=== PATIENT | female | born 1970 | race Caucasian/White ===

== ENCOUNTER 2017-12-07 16:51 | Emergency (ER) | payer MEDICAID ==
[2017-12-07 17:18] VITALS: BP 127/77; PULSE 83; RESP 16; TEMP 98.3; O2SAT 99
[2017-12-07] MEDS ORDERED: Albuterol 0.083% Inhal Sol (2.5 mg/3 mL) UD IH STA (18:30)
--- NOTE | 2017-12-07 18:31 | C.PDOC ---
History Of Present Illness 47 year old female presents to the ER with a complaint of fever and body aches for the past 4 days. Patient reports she has been taking Contac for the fever with improvement, however, patient began having cough 2 days ago for which she has been taking tylenol. Denies sick contact, recent travel, chest pain, sob, rash, neck pain, abdominal pain, nausea, or vomiting. Time Seen by Provider: 12/07/17 18:08 Chief Complaint (Nursing): Flu-like Symptoms History Per: Patient History/Exam Limitations: no limitations Onset/Duration Of Symptoms: Days Current Symptoms Are (Timing): Still Present Location Of Pain: Diffuse Myalgias Associated Symptoms: Fever, Cough, Myalgias Ear Symptoms: Bilateral: None Recent travel outside of the [place]: No Past Medical History Reviewed: Historical Data, Nursing Documentation, Vital Signs Vital Signs: Last Vital Signs Temp 98.3 F 12/07/17 17:14 Pulse 83 12/07/17 17:14 Resp 16 12/07/17 17:14 BP 127/77 12/07/17 17:14 Pulse Ox 99 12/07/17 20:54 Surgical History: Cholecystectomy Family History: States: Unknown Family Hx - Social History Hx Tobacco Use: No Hx Alcohol Use: No (occasional) Hx Substance Use: No - Immunization History Hx Tetanus Toxoid Vaccination: No Hx Influenza Vaccination: No Hx Pneumococcal Vaccination: No Review Of Systems Constitutional: Positive for: Fever Respiratory: Positive for: Cough Gastrointestinal: Negative for: Nausea, Vomiting, Abdominal Pain Musculoskeletal: Positive for: Other (Body aches) Physical Exam - Physical Exam Appears: Non-toxic, No Acute Distress Skin: Normal Color, Warm, Dry Head: Atraumatic, Normacephalic Eye(s): bilateral: Normal Inspection, EOMI Ear(s): Bilateral: Normal Nose: Normal Oral Mucosa: Moist Throat: Normal, No Erythema, No Exudate Neck: Normal, Supple Chest: Symmetrical, No Tenderness Cardiovascular: Rhythm Regular Respiratory: Normal Breath Sounds, No Rales, No Rhonchi, No Wheezing Gastrointestinal/Abdominal: Soft, No Tenderness Extremity: Normal ROM Neurological/Psych: Oriented x3, Normal Speech ED Course And Treatment O2 Sat by Pulse Oximetry: 99 (Room air) Pulse Ox Interpretation: Normal - Radiology CXR: Interpreted by Me, Viewed By Me CXR Interpretation: Yes: No Acute Disease. No: Infiltrates Progress Note: CXR ordered, results were negative. Albuterol nebulizer administered. Patient is resting comfortably in no acute distress with clear breath sounds, she reports improvement of her cough symptoms. Will discharge home with instructions to follow up with PMD or return if symptoms worsen. Disposition - Disposition Disposition: HOME/ ROUTINE Disposition Time: 19:24 Condition: STABLE Additional Instructions: Follow up with your primary medical doctor or clinic in 2-5 days for further evaluation. Take medications as prescribed. Return to the emergency department at any time if symptoms persist or worsen. Prescriptions: Albuterol HFA [Ventolin HFA 90 mcg/actuation (8 g)] 2 puff IH [id number] #1 puff Azithromycin [Zithromax] 250 mg PO DAILY #6 tab Guaifen/Dextromethorphan/PE [Mucinex Fast-Max Congest-Cough] 1 each PO Q6 #20 tablet predniSONE [Prednisone] 40 mg PO DAILY #8 tab Instructions: Acute Bronchitis, Adult (DC) Forms: [employer]™ (Czech) - Clinical Impression Clinical Impression: Bronchitis - PA / [employer] / Resident Statement MD/DO has reviewed & agrees with the documentation as recorded. - Scribe Statement The provider has reviewed the documentation as recorded by the Scribe Kuldeep Swan All medical record entries made by the Scribe were at my direction and personally dictated by me. I have reviewed the chart and agree that the record accurately reflects my personal performance of the history, physical exam, medical decision making, and the department course for this patient. I have also personally directed, reviewed, and agree with the discharge instructions and disposition.
[2017-12-07] MEDS ORDERED: Albuterol 0.083% Inhal Sol (2.5 mg/3 mL) UD ONE (18:37)
--- NOTE | 2017-12-08 10:18 | RAD ---
HISTORY: fever COMPARISON: None available. TECHNIQUE: Chest PA and lateral FINDINGS: Examination limited by habitus. LUNGS: No focal consolidation. Please note that chest x-ray has limited sensitivity for the detection of pulmonary masses. PLEURA: No significant pleural effusion identified. No definite pneumothorax . CARDIOVASCULAR: Heart size appears top normal. OSSEOUS STRUCTURES: Mild degenerative changes of the spine. VISUALIZED UPPER ABDOMEN: Unremarkable. OTHER FINDINGS: None. IMPRESSION: No focal consolidation, significant pleural effusion, or definite pneumothorax identified.
== END 2017-12-07 19:33 | disposition home or self-care (01) ==
LOC: C.ER 16:51
DX: J40 Bronchitis, not specified as acute or chronic (principal)

== ENCOUNTER 2017-12-23 18:43 | Observation (INO) | payer MEDICAID ==
[2017-12-23] MEDS ORDERED: Sodium Chloride 0.9% 1,000 ML IV ONE (20:07)
[2017-12-23] MEDS ORDERED: Belladonna-Phenobarbital PO STA (20:07)
[2017-12-23] MEDS ORDERED: Belladonna-Phenobarbital ONE (20:30)
[2017-12-23] MEDS ORDERED: Sodium Chloride 0.9% 1,000 ML ONE (20:31)
[2017-12-23 20:54] LABS: SQUAMOUS EPITHIAL 1 /hpf (0-5); URINE BACTERIA RARE (<OCC); URINE BILIRUBIN NEGATIVE (NEGATIVE); URINE BLOOD NEGATIVE (NEGATIVE); URINE CLARITY Clear (Clear); URINE COLOR Yellow (YELLOW); URINE GLUCOSE (UA) NORMAL (Normal); URINE HYALINE CAST 0-2 /lpf (0-2); URINE LEUKOCYTE ESTERASE NEG Leu/uL (Negative); URINE PROTEIN NEGATIVE (NEGATIVE); URINE UROBILINOGEN NORMAL mg/dL (0.2-1.0)
[2017-12-23 20:55] LABS: ALB/GLOB RATIO 1.3 (1.0-2.1); ALBUMIN 4.2 g/dL (3.5-5.0); ALT/SGPT 44 U/L (9-52); AST/SGOT 42 U/L (14-36); BLOOD UREA NITROGEN 12 mg/dL (7-17); CALCIUM 8.6 mg/dl (8.6-10.4); GFR AFRICAN-AMERICAN > 60; GFR NON-AFRICAN AMERICAN > 60; LIPASE 167 U/L (23-300)
[2017-12-23 21:00] LABS: HCG,QUALITATIVE URINE NEGATIVE (NEGATIVE)
[2017-12-23 21:11] LABS: BASO # 0.1 K/uL (0.0-0.2); BASO % 0.7 % (0.0-2.0); EOS # 0.2 K/uL (0.0-0.7); EOS % 1.2 % (0.0-4.0); LYMPH # 2.6 K/uL (1.0-4.3); LYMPH % 20.3 % (20.0-40.0); MEAN CELL VOLUME 56.9 fL (81.0-99.0); MEAN CORPUSCULAR HEMOGLOBIN 16.6 pg (27.0-31.0); MEAN CORPUSCULAR HGB CONC 29.1 g/dL (33.0-37.0); MEAN PLATELET VOLUME 8.7 fL (7.2-11.7); MONO # 0.9 K/uL (0.0-0.8); MONO % 6.8 % (0.0-10.0); NEUT # 9.2 K/uL (1.8-7.0); NRBC % 0.6 % (0.0-2.0); RBC 3.55 Mil/uL (3.80-5.20); RED CELL DISTRIBUTION WIDTH 21.4 % (11.5-14.5)
[2017-12-23 21:18] LABS: HEMOGLOBIN 5.9 g/dL (11.0-16.0)
[2017-12-23] MEDS ORDERED: Iohexol 300 100 ML IJ ONE (21:45)
[2017-12-23 22:08] LABS: INR 1.1; PROTHROMBIN TIME 12.2 SECONDS (9.7-12.2)
--- NOTE | 2017-12-23 22:44 | CT ---
EXAM: CT Abdomen and Pelvis With Intravenous Contrast CLINICAL HISTORY: 47 years old, female; Pain; Abdominal pain; Additional info: Abdominal pain. TECHNIQUE: Axial computed tomography images of the abdomen and pelvis with intravenous contrast. All CT scans at this facility use one or more dose reduction techniques, viz.: automated exposure control; ma/kV adjustment per patient size (including targeted exams where dose is matched to indication; i.e. head); or iterative reconstruction technique. Coronal and sagittal reformatted images were created and reviewed. CONTRAST: 100 mL of omnipaque 300 administered intravenously. COMPARISON: No relevant prior studies available. FINDINGS: Lower thorax: No acute findings. ABDOMEN: Liver: Unremarkable. No mass. Gallbladder and bile ducts: There has been a cholecystectomy. No ductal dilation. Pancreas: Unremarkable. No mass. No ductal dilation. Spleen: Unremarkable. No splenomegaly. Adrenals: Unremarkable. No mass. Kidneys and ureters: Unremarkable. No solid mass. No hydronephrosis. Stomach and bowel: Unremarkable. No obstruction. No mucosal thickening. Appendix: No findings to suggest acute appendicitis. The appendix is top normal to mildly prominent measuring 6 mm without adjacent inflammatory stranding to suggest acute appendicitis. PELVIS: Bladder: Unremarkable. No mass. Reproductive: The uterus is enlarged and lobulated in contour secondary to multiple fibroids. ABDOMEN and PELVIS: Intraperitoneal space: Unremarkable. No free air. No significant fluid collection. Bones/joints: No acute fracture. No dislocation. Soft tissues: Unremarkable. Vasculature: Unremarkable. No abdominal aortic aneurysm. Lymph nodes: Unremarkable. No enlarged lymph nodes. IMPRESSION: No acute intra-abdominal or pelvic abnormality. Cholecystectomy. Fibroid uterus.
--- NOTE | 2017-12-23 23:10 | C.PDOC ---
Time Seen by Provider: 12/23/17 19:36 Chief Complaint (Nursing): Abdominal Pain History Per: Patient Onset/Duration Of Symptoms: Hrs (today) Current Symptoms Are (Timing): Still Present Severity: Moderate Location Of Pain/Discomfort: Diffuse Quality Of Discomfort: Unable To Describe, "Pain" Alleviating Factors: None Recent travel outside of the [place]: No Additional History Per: Prior Records Past Medical History Reviewed: Historical Data, Nursing Documentation, Vital Signs Vital Signs: Last Vital Signs Temp 98.7 F 12/23/17 22:22 Pulse 81 12/23/17 22:22 Resp 18 12/23/17 22:22 BP 110/67 12/23/17 22:22 Pulse Ox 98 12/23/17 22:22 - Medical History PMH: No Chronic Diseases Surgical History: Cholecystectomy Family History: States: Unknown Family Hx - Social History Hx Tobacco Use: No Hx Alcohol Use: No (occasional) Hx Substance Use: No - Immunization History Hx Tetanus Toxoid Vaccination: No Hx Influenza Vaccination: No Hx Pneumococcal Vaccination: No Review Of Systems Except As Marked, All Systems Reviewed And Found Negative. Constitutional: Positive for: Malaise. Negative for: Fever Cardiovascular: Positive for: Light Headedness. Negative for: Chest Pain Respiratory: Negative for: Shortness of Breath Gastrointestinal: Positive for: Abdominal Pain. Negative for: Vomiting, Diarrhea, Constipation, Melena, Hematochezia, Hematemesis Genitourinary: Positive for: Vaginal Bleeding (Has heavy menstrual periods, however no current bleeding.). Negative for: Dysuria Musculoskeletal: Negative for: Neck Pain, Back Pain Skin: Negative for: Rash Neurological: Negative for: Weakness, Numbness, Seizures, Altered Mental Status Physical Exam - Physical Exam Appears: Non-toxic, No Acute Distress Skin: Warm, Dry, Pale Head: Atraumatic, Normacephalic Eye(s): bilateral: PERRL, EOMI, Conjunctiva Pale Neck: Normal ROM, Supple Cardiovascular: Rhythm Regular Respiratory: Normal Breath Sounds, No Accessory Muscle Use Gastrointestinal/Abdominal: Soft, Tenderness (nonspecific), No Guarding, No Rebound Rectal: Heme Negative, Other (Brown stool) Back: No CVA Tenderness Extremity: Normal ROM Neurological/Psych: Oriented x3, Normal Motor, Normal Sensation ED Course And Treatment - Laboratory Results Result Diagrams: 12/23/17 20:33 12/23/17 20:33 Lab Interpretation: Abnormal Interpretation Of Abnormal: Severe anemia Urine POC: Negative O2 Sat by Pulse Oximetry: 98 Pulse Ox Interpretation: Normal - CT Scan/US CT abd/pelv Other Rad Studies (CT/US): Read By Radiologist, Radiology Report Reviewed CT/US Interpretation: IMPRESSION: No acute intra-abdominal or pelvic abnormality. . Cholecystectomy. . Fibroid uterus. Progress - Interventions Interventions:: Observation, Intravenous fluid - Medications Administered Intravenous: Antiemetic, H-2 dmitriy, NSAID - Data Reviewed Data Reviewed: Lab, Diagnostic imaging, Old records - Patient Status Patient status: Partially improved - Continuity of Care Discussed patient case with:: Patient, ED Nurse, On-call PMD-pt unassigned Medical Decision Making Medical Decision Making: Anemia is likely due to heavy menses, however pt requires blood transfuses because she is symptomatic. Disposition Discussed With : Kelechi Barkley Jr. Comment: He accepted pt on his service. Pt also signed out to MAR. Doctor Will See Patient In The: Hospital Counseled Patient/Family Regarding: Studies Performed, Diagnosis - Disposition Disposition: HOSPITALIZED Disposition Time: 23:13 Condition: SERIOUS - Clinical Impression Clinical Impression: Symptomatic anemia, Severe anemia, Acute abdominal pain
--- NOTE | 2017-12-24 00:13 | CP.PCM.HP ---
History of Present Illness - History of Present Illness History of Present Illness: CC: "my belly hurts" HPI: Mrs Cha is a 47 year old female who presented to [facility] ER for diffuse abdominal pain 04/26 that started yesterday morning at 10AM. She says the pain radiates to her lower back. She says she feels bloated. She denies bloody or black stool. Her last BM was also yesterday morning which said was normal (normal caliber, normal color). Her last meal was yesterday afternoon. She denies pain associated with food. Additionally, she admits to feeling lightheaded, dizzy and fatigued which she says has been ongoing for the past few months. She says she usually gets very heavy periods (unable to recall avg number of pads used). Her LMP was 12/08/17. She denies nausea, vomiting, or fever. PMD: does not have PMHx: denies PSHx: Cholecystectomy 1998 Allergies: Denies Home meds: none FamHx: denies SocialHx: denies tobacco use; drinks alcohol socially at parties; denies illicit drug use; lives at home with and 3 kids Present on Admission - Present on Admission Any Indicators Present on Admission: No Review of Systems - Constitutional Constitutional: Weakness. absent: Chills, Fever, Weight Loss - EENT Eyes: absent: Change in Vision - Cardiovascular Cardiovascular: absent: Chest Pain, Chest Pain with Activity, Claudication, Diaphoresis, Palpitations, Paroxysmal Nocturnal Dyspnea, Rapid Heart Rate - Respiratory Respiratory: absent: Cough, Hemoptysis, Dyspnea on Exertion, Wheezing, Change in Mucous Color - Gastrointestinal Gastrointestinal: Abdominal Pain, Bloating. absent: Constipation, Diarrhea, Loose Stools, Nausea, Temesmus, Vomiting - Genitourinary Genitourinary: absent: Difficulty Urinating, Dysuria, Hematuria, Urinary Frequency - Reproductive: Female Reproductive:Female: Heavy Menses - Menstruation Menstruation: Heavy Menses - Musculoskeletal Musculoskeletal: Back Pain - Integumentary Integumentary: absent: Bleeding Lesions Past Patient History - Past Social History Smoking Status: Never Smoked - PSYCHIATRIC Hx Substance Use: No - SURGICAL HISTORY Hx Cholecystectomy: Yes - ANESTHESIA Hx Anesthesia: Yes Hx Anesthesia Reactions: No Meds Allergies/Adverse Reactions: Allergies Allergy/AdvReac Type Severity Reaction Status Date / Time No Known Allergies Allergy Verified 12/23/17 18:47 Physical Exam - Constitutional Appears: Non-toxic, No Acute Distress - Head Exam Head Exam: ATRAUMATIC, NORMAL INSPECTION - Eye Exam Eye Exam: EOMI Pupil Exam: PERRL - ENT Exam ENT Exam: Mucous Membranes Moist - Neck Exam Neck exam: Positive for: Normal Inspection. Negative for: Lymphadenopathy, Tenderness - Respiratory Exam Respiratory Exam: Clear to Auscultation Bilateral, NORMAL BREATHING PATTERN. absent: Chest Wall Tenderness, Rales, Rhonchi, Wheezes - Cardiovascular Exam Cardiovascular Exam: REGULAR RHYTHM, +S1, +S2. absent: JVD, Systolic Murmur - GI/Abdominal Exam GI & Abdominal Exam: Normal Bowel Sounds, Soft, Tenderness. absent: Distended, Firm, Guarding, Rebound, Rigid Additional comments: Suprapubic tenderness to deep palpation in horizontal band-like fashion epigastric tenderness mild - Rectal Exam Additional comments: Performed by ER physician: Heme Negative, Other (Brown stool) - Extremities Exam Extremities exam: Positive for: normal capillary refill, normal inspection, pedal pulses present. Negative for: pedal edema, tenderness - Back Exam Back exam: NORMAL INSPECTION. absent: CVA tenderness (L), CVA tenderness (R) - Neurological Exam Neurological exam: CN II-XII Intact, Oriented x3 - Psychiatric Exam Psychiatric exam: Normal Affect, Normal Mood - Skin Skin Exam: Intact, Normal Color, Warm Results - Vital Signs Recent Vital Signs: Last Vital Signs Temp 98.5 F 12/23/17 23:39 Pulse 72 12/23/17 23:39 Resp 18 12/23/17 23:39 BP 120/73 12/23/17 23:39 Pulse Ox 97 12/23/17 23:39 - Labs Result Diagrams: 12/23/17 20:33 12/23/17 20:33 Labs: Laboratory Results - last 24 hr 12/23/17 12/23/17 12/23/17 20:33 20:33 20:47 WBC 13.0 H RBC 3.55 L Hgb 5.9 L* Hct 20.2 L MCV 56.9 L MCH 16.6 L MCHC 29.1 L RDW 21.4 H Plt Count 370 MPV 8.7 Neut % (Auto) 71.0 Lymph % (Auto) 20.3 [place] % (Auto) 6.8 Eos % (Auto) 1.2 Baso % (Auto) 0.7 Neut # (Auto) 9.2 H Lymph # (Auto) 2.6 [place] # (Auto) 0.9 H Eos # (Auto) 0.2 Baso # (Auto) 0.1 Differential Comment PT INR APTT Sodium 137 Potassium 3.7 Chloride 99 Carbon Dioxide 25 Anion Gap 18 BUN 12 Creatinine 0.5 L Est GFR ( Amer) > 60 Est GFR (Non-Af Amer) > 60 Random Glucose 112 H Calcium 8.6 Total Bilirubin 0.4 AST 42 H ALT 44 Alkaline Phosphatase 74 Total Protein 7.5 Albumin 4.2 Globulin 3.3 Albumin/Globulin Ratio 1.3 Lipase 167 Urine Color Yellow Urine Clarity Clear Urine pH 5.0 Ur Specific [place] 1.017 Urine Protein Negative Urine Glucose (UA) Normal Urine Ketones Negative Urine Blood Negative Urine Nitrate Negative Urine Bilirubin Negative Urine Urobilinogen Normal Ur Leukocyte Esterase Neg Urine WBC (Auto) 1 Urine RBC (Auto) < 1 Ur Squamous Epith Cells 1 Urine Bacteria Rare Hyaline Casts 0-2 Urine HCG, Qual Negative Stool Occult Blood Blood Type Antibody Screen 12/23/17 12/23/17 12/23/17 21:54 21:54 21:54 WBC RBC Hgb Hct MCV MCH MCHC RDW Plt Count MPV Neut % (Auto) Lymph % (Auto) [place] % (Auto) Eos % (Auto) Baso % (Auto) Neut # (Auto) Lymph # (Auto) [place] # (Auto) Eos # (Auto) Baso # (Auto) Differential Comment PT 12.2 INR 1.1 APTT 31 Sodium Potassium Chloride Carbon Dioxide Anion Gap BUN Creatinine Est GFR ( Amer) Est GFR (Non-Af Amer) Random Glucose Calcium Total Bilirubin AST ALT Alkaline Phosphatase Total Protein Albumin Globulin Albumin/Globulin Ratio Lipase Urine Color Urine Clarity Urine pH Ur Specific [place] Urine Protein Urine Glucose (UA) Urine Ketones Urine Blood Urine Nitrate Urine Bilirubin Urine Urobilinogen Ur Leukocyte Esterase Urine WBC (Auto) Urine RBC (Auto) Ur Squamous Epith Cells Urine Bacteria Hyaline Casts Urine HCG, Qual Stool Occult Blood Negative Blood Type O POSITIVE Antibody Screen Negative Assessment & Plan (1) Acute abdominal pain Assessment and Plan: Abd pain most likely 2/2 to Fibroid Uterus (CT did not show any other intra- abdominal abnormality) * Upon discharge patient will need to be referred to an [facility] (patient w/ insurance) Lipase NEGATIVE LFTs NORMAL, Lipase NORMAL, Urinalysis NORMAL Meds: Motrin 400mg PO Q6H PRN for pain Zofran 4mg IVP Q6H PRN for nausea Protonix 40mg PO QD Imaging: CT abd/pelvis w/ IV contrast: No acute intra-abdominal or pelvic abnormality. Cholecystectomy. Fibroid uterus. Status: Acute Priority: High (2) Symptomatic anemia Assessment and Plan: Chronically symptomatic w/ lightheadedness and fatigue Most likely 2/2 to heavy flow periods (unable to recall # pads used); LMP * CT abd/pelvis shows a fibroid uterus Hgb on admission: 5.9 * Will receive 2 units pRBCs 12/24/17 Stool Occult Blood NEGATIVE Status: Acute Priority: High (3) Prophylactic measure Assessment and Plan: SCDs, Lovenox 40mg SC QD Protonix 40mg PO QD Heart Healthy diet (patient wants to eat and does not associate abd pain with food) Status: Acute Priority: Low
[2017-12-24 07:46] LABS: BASO # 0.1 K/uL (0.0-0.2); BASO % 0.7 % (0.0-2.0); EOS # 0.1 K/uL (0.0-0.7); EOS % 1.7 % (0.0-4.0); HEMOGLOBIN 6.9 g/dL (11.0-16.0); LYMPH # 2.4 K/uL (1.0-4.3); LYMPH % 28.1 % (20.0-40.0); MEAN CORPUSCULAR HEMOGLOBIN 18.2 pg (27.0-31.0); MEAN CORPUSCULAR HGB CONC 29.6 g/dL (33.0-37.0); MEAN PLATELET VOLUME 8.7 fL (7.2-11.7); MONO # 0.9 K/uL (0.0-0.8); MONO % 10.1 % (0.0-10.0); NEUT # 5.1 K/uL (1.8-7.0); NEUT % 59.4 % (50.0-75.0); NRBC % 0.4 % (0.0-2.0); RBC 3.8 Mil/uL (3.80-5.20); RED CELL DISTRIBUTION WIDTH 28.9 % (11.5-14.5); WHITE BLOOD COUNT 8.6 K/uL (4.8-10.8)
[2017-12-24 07:56] LABS: MEAN CELL VOLUME 61.4 fL (81.0-99.0)
[2017-12-24 08:02] LABS: ALB/GLOB RATIO 1.2 (1.0-2.1); ALBUMIN 3.9 g/dL (3.5-5.0); ALT/SGPT 43 U/L (9-52); AST/SGOT 43 U/L (14-36); BLOOD UREA NITROGEN 7 mg/dL (7-17); CALCIUM 8.5 mg/dl (8.6-10.4); GFR AFRICAN-AMERICAN > 60; GFR NON-AFRICAN AMERICAN > 60
--- NOTE | 2017-12-24 08:15 | CP.PCM.DIS ---
Provider - Provider Date of Admission: 12/23/17 23:14 Attending physician: Kelechi Barkley Jr, MD Time Spent in preparation of Discharge (in minutes): 55 Hospital Course - Lab Results Lab Results: Most Recent Lab Values WBC 8.6 K/uL (4.8-10.8) 12/24/17 07:22 RBC 3.80 Mil/uL (3.80-5.20) 12/24/17 07:22 Hgb 6.9 g/dL (11.0-16.0) L 12/24/17 07:22 Hct 23.3 % (34.0-47.0) L 12/24/17 07:22 MCV 61.4 fL (81.0-99.0) L D 12/24/17 07: MCH 18.2 pg (27.0-31.0) L 12/24/17 07: MCHC 29.6 g/dL (33.0-37.0) L 12/24/17 07:22 RDW 28.9 % (11.5-14.5) H 12/24/17 07:22 Plt Count 366 K/uL (130-400) 12/24/17 07:22 MPV 8.7 fL (7.2-11.7) 12/24/17 07:22 Neut % (Auto) 59.4 % (50.0-75.0) 12/24/17 07:22 Lymph % (Auto) 28.1 % (20.0-40.0) 12/24/17 07:22 [place] % (Auto) 10.1 % (0.0-10.0) H 12/24/17 07:22 Eos % (Auto) 1.7 % (0.0-4.0) 12/24/17 07:22 Baso % (Auto) 0.7 % (0.0-2.0) 12/24/17 07:22 Neut # (Auto) 5.1 K/uL (1.8-7.0) 12/24/17 07:22 Lymph # (Auto) 2.4 K/uL (1.0-4.3) 12/24/17 07:22 [place] # (Auto) 0.9 K/uL (0.0-0.8) H 12/24/17 07:22 Eos # (Auto) 0.1 K/uL (0.0-0.7) 12/24/17 07:22 Baso # (Auto) 0.1 K/uL (0.0-0.2) 12/24/17 07:22 Differential Comment 12/23/17 20:33 PT 12.2 SECONDS (9.7-12.2) 12/23/17 21:54 INR 1.1 12/23/17 21:54 APTT 31 SECONDS (21-34) 12/23/17 21:54 Sodium 140 mmol/L (132-148) 12/24/17 07:22 Potassium 4.0 mmol/L (3.6-5.2) 12/24/17 07:22 Chloride 105 mmol/L (98-107) 12/24/17 07:22 Carbon Dioxide 24 mmol/L (22-30) 12/24/17 07:22 Anion Gap 15 (10-20) 12/24/17 07:22 BUN 7 mg/dL (7-17) 12/24/17 07:22 Creatinine 0.5 mg/dL (0.7-1.2) L 12/24/17 07:22 Est GFR ( Amer) > 60 12/24/17 07:22 Est GFR (Non-Af Amer) > 60 12/24/17 07:22 Random Glucose 75 mg/dL (65-105) 12/24/17 07:22 Calcium 8.5 mg/dl (8.6-10.4) L 12/24/17 07:22 Total Bilirubin 0.6 mg/dL (0.2-1.3) 12/24/17 07:22 AST 43 U/L (14-36) H 12/24/17 07:22 ALT 43 U/L (9-52) 12/24/17 07:22 Alkaline Phosphatase 69 U/L (38-126) 12/24/17 07:22 Total Protein 7.1 g/dL (6.3-8.3) 12/24/17 07:22 Albumin 3.9 g/dL (3.5-5.0) 12/24/17 07:22 Globulin 3.2 gm/dL (2.2-3.9) 12/24/17 07:22 Albumin/Globulin Ratio 1.2 (1.0-2.1) 12/24/17 07:22 Lipase 167 U/L (23-300) 12/23/17 20:33 Urine Color Yellow (YELLOW) 12/23/17 20:47 Urine Clarity Clear (Clear) 12/23/17 20:47 Urine pH 5.0 (5.0-8.0) 12/23/17 20:47 Ur Specific [place] 1.017 (1.003-1.030) 12/23/17 20:47 Urine Protein Negative mg/dL (NEGATIVE) 12/23/17 20:47 Urine Glucose (UA) Normal mg/dL (Normal) 12/23/17 20:47 Urine Ketones Negative mg/dL (NEGATIVE) 12/23/17 20:47 Urine Blood Negative (NEGATIVE) 12/23/17 20:47 Urine Nitrate Negative (NEGATIVE) 12/23/17 20:47 Urine Bilirubin Negative (NEGATIVE) 12/23/17 20:47 Urine Urobilinogen Normal mg/dL (0.2-1.0) 12/23/17 20:47 Ur Leukocyte Esterase Neg [place]/uL (Negative) 12/23/17 20:47 Urine WBC (Auto) 1 /hpf (0-5) 12/23/17 20:47 Urine RBC (Auto) < 1 /hpf (0-3) 12/23/17 20:47 Ur Squamous Epith Cells 1 /hpf (0-5) 12/23/17 20:47 Urine Bacteria Rare (<OCC) 12/23/17 20:47 Hyaline Casts 0-2 /lpf (0-2) 12/23/17 20:47 Urine HCG, Qual Negative (NEGATIVE) 12/23/17 20:47 Stool Occult Blood Negative (NEGATIVE) 12/23/17 21:54 Blood Type O POSITIVE 12/23/17 21:54 Antibody Screen Negative 12/23/17 21:54 - Hospital Course Hospital Course: Upon Admission: CC: "my belly hurts" HPI: Mrs Cha is a 47 year old female who presented to [facility] for diffuse abdominal pain 04/26 that started yesterday morning at 10AM. She says the pain radiates to her lower back. She says she feels bloated. She denies bloody or black stool. Her last BM was also yesterday morning which said was normal (normal caliber, normal color). Her last meal was yesterday afternoon. She denies pain associated with food. Additionally, she admits to feeling lightheaded, dizzy and fatigued which she says has been ongoing for the past few months. She says she usually gets very heavy periods (unable to recall avg number of pads used). Her LMP was 12/08/17. She denies nausea, vomiting, or fever. PMD: does not have PMHx: denies PSHx: Cholecystectomy 1998 Allergies: Denies Home meds: none FamHx: denies SocialHx: denies tobacco use; drinks alcohol socially at parties; denies illicit drug use; lives at home with and 3 kids Throughout Hospital Course: Patient was admitted for symptomatic anemia. Acute abdominal pain Menorrhagia Hx of Fibroid Uterus Assessment and Plan: Abd pain most likely 2/2 to Fibroid Uterus (CT did not show any other intra- abdominal abnormality) * Upon discharge patient will need to be referred to an ENDOCRINOLOGY PHYSICIAN (patient w/ insurance) Lipase NEGATIVE LFTs NORMAL, Lipase NORMAL, Urinalysis NORMAL Imaging: CT abd/pelvis w/ IV contrast: No acute intra-abdominal or pelvic abnormality. Cholecystectomy. Fibroid uterus. Meds: Motrin 400mg PO Q6H PRN for pain Zofran 4mg IVP Q6H PRN for nausea Protonix 40mg PO QD Symptomatic anemia Assessment and Plan: Chronically symptomatic w/ lightheadedness and fatigue Most likely 2/2 to heavy flow periods (unable to recall # pads used); LMP * CT abd/pelvis shows a fibroid uterus Hgb on admission: 5.9 * Will receive 2 units pRBCs 12/24/17 Stool Occult Blood NEGATIVE Patient is to follow up with [facility] as outpatient for management of her Menorrhagia 2/2 to her Fibroid Uterus. This is a brief summary of the patient's hospital course. Please review EMR for full record. Discharge Exam - Additional Findings Additional findings: - Head Exam Head Exam: ATRAUMATIC, NORMAL INSPECTION - Eye Exam Eye Exam: EOMI Pupil Exam: PERRL - ENT Exam ENT Exam: Mucous Membranes Moist - Neck Exam Neck exam: Positive for: Normal Inspection. Negative for: Lymphadenopathy, Tenderness - Respiratory Exam Respiratory Exam: Clear to Auscultation Bilateral, NORMAL BREATHING PATTERN. absent: Chest Wall Tenderness, Rales, Rhonchi, Wheezes - Cardiovascular Exam Cardiovascular Exam: REGULAR RHYTHM, +S1, +S2. absent: JVD, Systolic Murmur - GI/Abdominal Exam GI & Abdominal Exam: Normal Bowel Sounds, Soft, Tenderness. absent: Distended, Firm, Guarding, Rebound, Rigid Additional comments: Suprapubic tenderness to deep palpation in horizontal band-like fashion epigastric tenderness mild - Rectal Exam Additional comments: Performed by ER physician: Heme Negative, Other (Brown stool) - Extremities Exam Extremities exam: Positive for: normal capillary refill, normal inspection, pedal pulses present. Negative for: pedal edema, tenderness - Back Exam Back exam: NORMAL INSPECTION. absent: CVA tenderness (L), CVA tenderness (R) - Neurological Exam Neurological exam: CN II-XII Intact, Oriented x3 - Psychiatric Exam Psychiatric exam: Normal Affect, Normal Mood - Skin Skin Exam: Intact, Normal Color, Warm Discharge Plan - Discharge Medications Prescriptions: Docusate [Colace] 100 mg PO TID #90 cap Ferrous Sulfate 325 mg PO DAILY #30 tablet - Follow Up Plan Condition: STABLE Disposition: HOME/ ROUTINE Referrals: Marilyn Lorenz MD [Staff Provider] - Miguel Richey MD [Staff Provider] - Lynda David MD [Staff Provider] -
[2017-12-24 08:31] VITALS: O2SAT 96
[2017-12-24] MEDS ORDERED: Pantoprazole 40 mg EC Tab PO SCH (10:00)
[2017-12-24] MEDS ORDERED: Influenza Vaccine 60 mcg/0.5 mL SYR (4YR UP) IM ONE (10:00)
[2017-12-24] MEDS ORDERED: Pneumococcal 23-Valent Vaccine IM ONE (10:00)
[2017-12-24] MEDS ORDERED: Enoxaparin 40 mg Syringe SC SCH (10:00)
[2017-12-24 10:16] VITALS: RESP 18
[2017-12-24 12:10] VITALS: BP 119/61; PULSE 73; TEMP 98.1
[2017-12-24 13:43] LABS: BASO # 0.1 K/uL (0.0-0.2); BASO % 0.9 % (0.0-2.0); EOS # 0.2 K/uL (0.0-0.7); EOS % 2.2 % (0.0-4.0); HEMOGLOBIN 8.1 g/dL (11.0-16.0); LYMPH % 26.6 % (20.0-40.0); MEAN CORPUSCULAR HEMOGLOBIN 19.4 pg (27.0-31.0); MEAN CORPUSCULAR HGB CONC 30.7 g/dL (33.0-37.0); MEAN PLATELET VOLUME 8.7 fL (7.2-11.7); MONO # 0.8 K/uL (0.0-0.8); MONO % 11.3 % (0.0-10.0); NEUT # 4.5 K/uL (1.8-7.0); NRBC % 0.3 % (0.0-2.0); RBC 4.16 Mil/uL (3.80-5.20); RED CELL DISTRIBUTION WIDTH 28.5 % (11.5-14.5); WHITE BLOOD COUNT 7.5 K/uL (4.8-10.8)
== END 2017-12-24 15:41 | disposition home or self-care (01) ==
LOC: C.ER 18:43 → C.9E 23:14 → INTOOBSV 23:14 → C.3T 23:38
PROVIDERS: ADMIT Internal Medicine; ATTEND Internal Medicine
DX: D50.0 Iron deficiency anemia secondary to blood loss (chronic) (principal); D25.9 Leiomyoma of uterus, unspecified; N92.0 Excessive and frequent menstruation with regular cycle; Z90.49 Acquired absence of other specified parts of digestive tract; Z23 Encounter for immunization
CPT/HCPCS: 36415; 36430; 74177; 80053; 81001; 83690; 84703; 85025; 85610; 85730; 86850; 86900; 86920; 90471; 90674; 90732; 96374; 96375; 99285; G0328; G0378; J1885; J2405; J7040; P9051; Q9967

== ENCOUNTER 2018-02-16 13:17 | Emergency (ER) | payer MEDICAID ==
[2018-02-16 13:29] VITALS: BMI 28.3
[2018-02-16 13:30] VITALS: O2SAT 98
[2018-02-16 14:41] LABS: BASO # 0.1 K/uL (0.0-0.2); BASO % 1.1 % (0.0-2.0); EOS # 0.1 K/uL (0.0-0.7); EOS % 1.6 % (0.0-4.0); HEMOGLOBIN 11.4 g/dL (11.0-16.0); LYMPH # 1.4 K/uL (1.0-4.3); LYMPH % 18.5 % (20.0-40.0); MEAN CELL VOLUME 80.8 fL (81.0-99.0); MEAN CORPUSCULAR HEMOGLOBIN 27.5 pg (27.0-31.0); MEAN PLATELET VOLUME 8.8 fL (7.2-11.7); MONO # 0.5 K/uL (0.0-0.8); MONO % 6.2 % (0.0-10.0); NEUT # 5.4 K/uL (1.8-7.0); NEUT % 72.6 % (50.0-75.0); RBC 4.16 Mil/uL (3.80-5.20); RED CELL DISTRIBUTION WIDTH 27.9 % (11.5-14.5); WHITE BLOOD COUNT 7.4 K/uL (4.8-10.8)
[2018-02-16 14:49] LABS: PROTHROMBIN TIME 10.8 SECONDS (9.7-12.2)
[2018-02-16 14:50] LABS: SQUAMOUS EPITHIAL < 1 /hpf (0-5); URINE BACTERIA RARE (<OCC); URINE BILIRUBIN NEGATIVE (NEGATIVE); URINE BLOOD 3+ (NEGATIVE); URINE CLARITY Hazy (Clear); URINE COLOR Yellow (YELLOW); URINE GLUCOSE (UA) NORMAL (Normal); URINE LEUKOCYTE ESTERASE NEG Leu/uL (Negative); URINE PROTEIN NEGATIVE (NEGATIVE); URINE UROBILINOGEN NORMAL mg/dL (0.2-1.0)
[2018-02-16 14:52] LABS: BLOOD UREA NITROGEN 9 mg/dL (7-17); CALCIUM 8.9 mg/dl (8.6-10.4); GFR AFRICAN-AMERICAN > 60; GFR NON-AFRICAN AMERICAN > 60
[2018-02-16 14:52] LABS: HCG,QUALITATIVE URINE NEGATIVE (NEGATIVE)
[2018-02-16] MEDS ORDERED: Sodium Chloride 0.9% 1,000 ML ONE (15:28)
[2018-02-16] MEDS: Sodium Chloride 0.9% 1,000 ML IV ONE (15:28)
--- NOTE | 2018-02-16 15:40 | C.PDOC ---
History Of Present Illness 47-year-old female, presents to the emergency department with complaints of heavy vaginal bleeding since yesterday, that is associated with menstrual cramping. Patient states she took Midol with no relief, prompting visit. She has history of uterine fibroid. She denies nausea/vomiting, fever or chills. No other complaints at this time. Time Seen by Provider: 02/16/18 14:07 Chief Complaint (Nursing): Female Genitourinary History Per: Patient History/Exam Limitations: no limitations Past Medical History Reviewed: Historical Data, Nursing Documentation, Vital Signs Vital Signs: Last Vital Signs Temp 98.8 F 02/16/18 16:05 Pulse 69 02/16/18 16:05 Resp 20 02/16/18 16:05 BP 118/73 02/16/18 16:05 Pulse Ox 98 02/16/18 16:06 - Medical History PMH: Anemia Denies: Chronic Kidney Disease Surgical History: Cholecystectomy - [facility] Procedures TRANSFUSE NONAUT RED BLOOD CELLS IN PERIPH VEIN, PERC (12/23/17) Family History: States: No Known Family Hx - Social History Hx Tobacco Use: No Hx Alcohol Use: No Hx Substance Use: No - Immunization History Hx Tetanus Toxoid Vaccination: No Hx Influenza Vaccination: Yes Hx Pneumococcal Vaccination: No Review Of Systems Constitutional: Negative for: Fever Gastrointestinal: Negative for: Vomiting Genitourinary: Positive for: Vaginal Bleeding, Pelvic Pain (cramping). Negative for: Dysuria Physical Exam - Physical Exam Appears: Non-toxic, No Acute Distress Skin: Normal Color, Warm, Dry, No Rash Head: Normacephalic Eye(s): bilateral: PERRL Nose: Normal Oral Mucosa: Moist Lips: Normal Appearing Neck: Normal ROM Cardiovascular: Rhythm Regular, No Murmur Respiratory: Normal Breath Sounds, No Accessory Muscle Use Gastrointestinal/Abdominal: Soft, Tenderness (mild, suprapubic) Extremity: Normal ROM, No Deformity, No Swelling Neurological/Psych: Oriented x3, Normal Speech ED Course And Treatment - Laboratory Results Result Diagrams: 02/16/18 14:38 02/16/18 14:38 O2 Sat by Pulse Oximetry: 98 (RA) Pulse Ox Interpretation: Normal Medical Decision Making Medical Decision Making: Impression: Vaginal Bleeding Plan: * Bloodwork * IVF, Toradol * UA Lab reviewed and unremarkable. Normal H/H. Patient remained well in no acute distress. She is hemodynamically stable. Reports pain improving. Patient advised to follow up with camp tender for further eval. Disposition - Disposition Referrals: Loli Sanders MD [Staff Provider] - Disposition: HOME/ ROUTINE Disposition Time: 18:00 Condition: GOOD Additional Instructions: Rx Sent to [facility] Follow up with your primary medical doctor or clinic in 2-5 days for further evaluation. Return to the emergency department at any time if symptoms persist or worsen. Prescriptions: MedroxyPROGESTERone [Provera] 1 tab PO DAILY #7 tab Naproxen [Naprosyn] 1 tab PO BID PRN #25 tab PRN Reason: Pain Instructions: Menstrual Cramps (DC) Forms: [email or web address] (Greenlandic) - POA Present On Arrival: None - Clinical Impression Clinical Impression: Dysmenorrhea, Uterine fibroid - Scribe Statement The provider has reviewed the documentation as recorded by the Scribe (Janny Verdugo) All medical record entries made by the Scribe were at my direction and personally dictated by me. I have reviewed the chart and agree that the record accurately reflects my personal performance of the history, physical exam, medical decision making, and the department course for this patient. I have also personally directed, reviewed, and agree with the discharge instructions and disposition.
[2018-02-16 16:06] VITALS: BP 118/73; PULSE 69; RESP 20; TEMP 98.8
== END 2018-02-16 16:08 | disposition home or self-care (01) ==
LOC: C.ER 13:17
DX: D25.9 Leiomyoma of uterus, unspecified (principal); N94.6 Dysmenorrhea, unspecified
CPT/HCPCS: 80048; 81001; 84703; 85025; 85610; 85730; 96361; 96374; 99284; J1885; J7040

== ENCOUNTER 2018-10-08 19:04 | Emergency (ER) | payer MEDICAID, OTHER ==
[2018-10-08 19:04] VITALS: BMI 28.3
[2018-10-08 19:16] VITALS: RESP 18
[2018-10-08 19:42] LABS: SQUAMOUS EPITHIAL < 1 /hpf (0-5); URINE BACTERIA RARE (<OCC); URINE BILIRUBIN NEGATIVE (NEGATIVE); URINE BLOOD 1+ (NEGATIVE); URINE CLARITY Clear (Clear); URINE COLOR Yellow (YELLOW); URINE GLUCOSE (UA) NORMAL (Normal); URINE LEUKOCYTE ESTERASE NEG Leu/uL (Negative); URINE PROTEIN NEGATIVE (NEGATIVE); URINE UROBILINOGEN NORMAL mg/dL (0.2-1.0)
[2018-10-08 19:43] LABS: HCG,QUALITATIVE URINE NEGATIVE (NEGATIVE)
[2018-10-08] MEDS ORDERED: Sodium Chloride 0.9% 1,000 ML IV ONE (19:50)
[2018-10-08 20:09] LABS: BASO # 0.1 K/uL (0.0-0.2); BASO % 0.7 % (0.0-2.0); EOS # 0.2 K/uL (0.0-0.7); EOS % 3.3 % (0.0-4.0); HEMOGLOBIN 12.3 g/dL (11.0-16.0); LYMPH # 2.1 K/uL (1.0-4.3); LYMPH % 28.2 % (20.0-40.0); MEAN CELL VOLUME 85.5 fL (81.0-99.0); MEAN CORPUSCULAR HEMOGLOBIN 28.5 pg (27.0-31.0); MEAN CORPUSCULAR HGB CONC 33.3 g/dL (33.0-37.0); MEAN PLATELET VOLUME 8.3 fL (7.2-11.7); MONO # 0.9 K/uL (0.0-0.8); MONO % 11.6 % (0.0-10.0); NEUT # 4.1 K/uL (1.8-7.0); NEUT % 56.2 % (50.0-75.0); RBC 4.31 Mil/uL (3.80-5.20); RED CELL DISTRIBUTION WIDTH 15.3 % (11.5-14.5); WHITE BLOOD COUNT 7.4 K/uL (4.8-10.8)
[2018-10-08 20:21] LABS: ALB/GLOB RATIO 1.3 (1.0-2.1); ALBUMIN 4.3 g/dL (3.5-5.0); ALT/SGPT 148 U/L (9-52); AST/SGOT 77 U/L (14-36); BLOOD UREA NITROGEN 10 mg/dL (7-17); CALCIUM 8.8 mg/dl (8.6-10.4); GFR NON-AFRICAN AMERICAN > 60; LIPASE 70 U/L (23-300)
[2018-10-08 21:39] VITALS: BP 105/66; PULSE 69; TEMP 98.2; O2SAT 97
--- NOTE | 2018-10-08 22:10 | C.PDOC ---
History Of Present Illness 48 year old female presents to the ER with a complaint of LLQ and left lower back pain since yesterday. Patient states the pain is not associated with nausea, vomiting, diarrhea, dysuria, vaginal bleeding, or vaginal discharge. Time Seen by Provider: 10/08/18 19:28 Chief Complaint (Nursing): Abdominal Pain History Per: Patient History/Exam Limitations: no limitations Onset/Duration Of Symptoms: Days (Yesterday) Current Symptoms Are (Timing): Still Present Location Of Pain/Discomfort: LLQ, Other (Left lower back) Quality Of Discomfort: Unable To Describe Associated Symptoms: denies: Nausea, Vomiting, Diarrhea, Other (Dysuria, Vaginal bleeding, Vaginal discharge) Exacerbating Factors: None Alleviating Factors: None Recent travel outside of the [place]: No Past Medical History Reviewed: Historical Data, Nursing Documentation, Vital Signs Vital Signs: Last Vital Signs Temp 98.2 F 10/08/18 21:39 Pulse 69 10/08/18 21:39 Resp 18 10/08/18 21:39 BP 105/66 10/08/18 21:39 Pulse Ox 97 10/08/18 21:39 - Medical History PMH: Anemia Denies: Chronic Kidney Disease Surgical History: Cholecystectomy Family History: States: Unknown Family Hx - Social History Hx Tobacco Use: No Hx Alcohol Use: Yes Hx Substance Use: No - Immunization History Hx Tetanus Toxoid Vaccination: No Hx Influenza Vaccination: No Hx Pneumococcal Vaccination: No Review Of Systems Except As Marked, All Systems Reviewed And Found Negative. Gastrointestinal: Positive for: Abdominal Pain Musculoskeletal: Positive for: Back Pain Physical Exam - Physical Exam Appears: Non-toxic Skin: Normal Color, Warm, Dry Head: Atraumatic, Normacephalic Eye(s): bilateral: Normal Inspection Oral Mucosa: Moist Neck: Normal, Supple Chest: Symmetrical, No Tenderness Cardiovascular: Rhythm Regular Respiratory: Normal Breath Sounds, No Rales, No Rhonchi, No Wheezing Gastrointestinal/Abdominal: Soft, Tenderness (Mild LLQ/Adnexal), No Guarding, No Rebound Back: No CVA Tenderness Neurological/Psych: Oriented x3, Normal Speech ED Course And Treatment - Laboratory Results Result Diagrams: 10/08/18 20:06 10/08/18 20:06 O2 Sat by Pulse Oximetry: 97 (Room air) Pulse Ox Interpretation: Normal Progress Note: CT abd/pel, urinalysis, and blood work ordered. IV fluids and toradol administered. Disposition Counseled Patient/Family Regarding: Studies Performed, Diagnosis, Need For Fo llowup, Rx Given - Disposition Referrals: Melvin Moraes MD [Primary Care Provider] - [facility] [Outside] Disposition: HOME/ ROUTINE Disposition Time: 00:30 Condition: STABLE Additional Instructions: FOLLOW UP WITH YOUR [facility]OLIN TUTOR WITHIN 1 WEEK USE PAIN MEDICATION NEEDED RETURN TO EMERGENCY ROOM IF YOUR SYMPTOMS WORSEN SIGUE CON TU [place] DENTRO DE 1 SEMANA UTILICE MEDICAMENTOS PARA EL DOLOR SEGN LO NECESARIO VUELVA A LA NINA DE EMERGENCIA SI ENGEL SNTOMA SE ACOMPAA Prescriptions: Naproxen 375 mg PO BID PRN #20 tablet PRN Reason: pain Instructions: Ovarian Cyst (DC) Forms: [employer] (Japanese) Print Language: COLOMBIAN - Clinical Impression Clinical Impression: Left ovarian cyst - Scribe Statement The provider has reviewed the documentation as recorded by the Scribe Kuldeep Swan All medical record entries made by the Scribe were at my direction and personally dictated by me. I have reviewed the chart and agree that the record accurately reflects my personal performance of the history, physical exam, medical decision making, and the department course for this patient. I have also personally directed, reviewed, and agree with the discharge instructions and disposition.
[2018-10-09] MEDS ORDERED: Naproxen 550 mg Tab PO STA (00:28)
[2018-10-09] MEDS ORDERED: Naproxen 550 mg Tab PO ONE (00:34)
--- NOTE | 2018-10-09 12:26 | CT ---
Date of service: 10/08/2018 PROCEDURE: CT Abdomen and Pelvis without intravenous contrast HISTORY: LLQ/L FLANK PAIN, R/O STONE VS DIVERTICULITIS COMPARISON: 12/23/2017 TECHNIQUE: Without contrast.. Contrast dose: 0 Radiation dose: Total exam DLP = 574.76 mGy-cm. This CT exam was performed using one or more of the following dose reduction techniques: Automated exposure control, adjustment of the mA and/or kV according to patient size, and/or use of iterative reconstruction technique. FINDINGS: LOWER THORAX: Unremarkable. LIVER: Unremarkable. No gross lesion or ductal dilatation. GALLBLADDER AND BILE DUCTS: Status post cholecystectomy PANCREAS: Unremarkable. No gross lesion or ductal dilatation. SPLEEN: Unremarkable. ADRENALS: Unremarkable. No mass. KIDNEYS AND URETERS: Unremarkable. No hydronephrosis. No solid mass. VASCULATURE: Unremarkable. No aortic aneurysm. No aortic atherosclerotic calcification or mural plaque present. BOWEL: Mild sigmoid diverticulosis without evidence of diverticulitis. No bowel obstruction. APPENDIX: Appendix measures up to 7 mm in diameter. There is a small appendicoliths at the tip of the appendix. There is no evidence of periappendiceal inflammatory change. Findings are equivocal for appendicitis and should be correlated with clinical evaluation. PERITONEUM: Unremarkable. No free fluid. No free air. LYMPH NODES: Unremarkable. No enlarged lymph nodes. BLADDER: Unremarkable. REPRODUCTIVE: Status post interval hysterectomy. Left adnexal structure likely residual ovary. No pelvic mass or fluid collection. BONES: No acute fracture. OTHER FINDINGS: None. IMPRESSION: Status post hysterectomy since prior examination. Likely residual left ovary in left hemipelvis. Minimal dilatation of the appendix to 7 mm diameter without evidence of periappendiceal inflammatory change. Findings are equivocal for appendicitis. There is a small appendicoliths seen at the appendiceal tip. Please correlate with clinical examination. No other acute findings. The preliminary findings for this examination were reported by [facility] at 9:20 p.m. on 10/08/2018. There is discordance of this report with the preliminary findings. Finding of abnormal diameter of the appendix was not described in the preliminary report of this examination. The above findings were discussed by telephone with CIARRA Dash at 12:20 p.m. on 10/09/2018.
--- NOTE | 2018-10-09 17:25 | US ---
Date of service: 10/08/2018 HISTORY: LEFT ADNEXAL PAIN COMPARISON: None available. TECHNIQUE: Transabdominal and transvaginal FINDINGS: UTERUS: Status post hysterectomy ENDOMETRIUM: Hysterectomy CERVIX: History RIGHT OVARY: Measures 1.3 x 1.7 x 1.8 cm. No solid mass. Normal flow. LEFT OVARY: Measures 3.6 x 3.5 x 4.6 cm. No solid mass. Normal flow. Multiple small physiologic cysts, largest 2.1 cm. Small nodular left ovarian calcification noted. FREE FLUID: No significant free fluid noted. OTHER FINDINGS: None. IMPRESSION: Status post hysterectomy. No other significant abnormality. The preliminary findings for this examination were reported by [facility] at 12:20 a.m. on 10/09/2018. There is concurrence of this report with the preliminary findings.
== END 2018-10-09 00:41 | disposition home or self-care (01) ==
LOC: C.ER 19:04 → SUPCPDRO 19:04 → C.ER 10-09 00:41
DX: N83.202 Unspecified ovarian cyst, left side (principal)
CPT/HCPCS: 74176; 76830; 76856; 80053; 81001; 83690; 84703; 85025; 96374; 99284; J1885; J7030

== ENCOUNTER 2018-11-18 10:01 | Outpatient (CLI) | payer OTHER | END 2018-11-18 10:02 | disposition home or self-care (01) | LOC: C.MAMMO 10:01 | DX: Z12.31 Encounter for screening mammogram for malignant neoplasm of breast (principal) ==